=== PATIENT | male | born 1970 | race African-American/Black ===

== ENCOUNTER 2016-09-27 10:43 | Emergency (ER) | payer OTHER ==
--- NOTE | 2016-09-27 11:51 | RAD ---
FOUR VIEW LEFT ELBOW SERIES: Clinical history: Pain. FINDINGS: No fracture or dislocation. No joint capsular distention. IMPRESSION: No acute fracture of the left elbow. POS: [facility]
== END 2016-09-27 12:15 | disposition home or self-care (01) ==
LOC: NAV ERS 10:43
DX: M77.12 Lateral epicondylitis, left elbow (principal)

== ENCOUNTER 2017-03-18 17:11 | Emergency (ER) | payer OTHER ==
[~2017-03-18 17:11] MED LIST: Iopamidol 370 76% 100 ML VIAL ONE
[2017-03-18] MEDS ORDERED: Benzonatate 100 MG CAP ONE (18:00)
[2017-03-18] MEDS ORDERED: Ketorolac Tromethamine 60 MG/2 ML VIAL ONE (18:00)
[2017-03-18 18:39] LABS: #Basophils 0.1 thou/uL (0.0-0.2); #Eosinphils 0.2 thou/uL (0.0-0.7); #Lymphocytes 2.1 thou/uL (1.20-3.40); #Monocytes 0.8 thou/uL (0.11-0.59); #Neutrophils 3.3 thou/uL (1.40-6.50); %Basophils 2.1 % (0.0-1.0); %Eosinophils 3.2 % (0.0-10.0); %Lymphocytes 32.6 % (21.0-51.0); %Monocytes 11.7 % (0.0-10.0); %Neutrophils 50.5 % (42.0-75.0); Hemoglobin 15.3 g/dL (14.0-18.0); Mean Corpuscular HGB CONC 33.6 g/dL (32.0-36.0); Mean Corpuscular Hemoglobin 29.8 pg (27.0-31.0); Mean Corpuscular Volume 88.8 fl (80.0-94.0); Mean Platelet Volume 7.8 fL (7.4-10.4); Platelet Count 223 thou/uL (130-400); RBC Distribution Width 11.7 % (11.5-14.5); Red Blood Cell (RBC) Count 5.12 mill/uL (4.70-6.10); White Blood Cell (WBC) Count 6.6 thou/uL (4.8-10.8)
[2017-03-18 18:46] LABS: Anion Gap 14 mmol/L (10-20); BUN (Urea Nitrogen) 18 mg/dL (8.9-20.6); Calc. Creatinine Clearance 0 mL/min (70-130); Calcium 9.8 mg/dL (7.8-10.44); Carbon Dioxide 28 mmol/L (22-29); Chloride 105 mmol/L (98-107); Estimated GFR-MDRD 51; Glucose 75 mg/dL (70-105); Potassium 4.1 mmol/L (3.5-5.1); Sodium 143 mmol/L (136-145)
[2017-03-18 18:49] LABS: CKMB 1.8 ng/mL (0-6.6); Troponin I Less than 0.010 ng/mL (< 0.028)
[2017-03-18] MEDS ORDERED: Sodium Chloride 0.9% 1,000 ML ONE (18:53)
--- NOTE | 2017-03-18 19:21 | RAD ---
CHEST TWO VIEWS: History: Cough, fever. Comparison: None. FINDINGS: There is an asymmetric increased density of the left lateral hemithorax relative to the right. On the lateral radiograph there appears to be an ovoid density. This may affect the pleura. IMPRESSION: Possible pleural based mass left frontal hemithorax. Follow up CT of the chest recommended. POS: [facility]
--- NOTE | 2017-03-18 20:00 | CT ---
CT CHEST WITH CONTRAST: History: Abnormality seen on radiograph. Comparison: Radiograph same day. FINDINGS: The abnormality seen on the radiograph due to absent right pectoralis major muscle which gave the irr egular mass-like density over the left hemidiaphragm. Granulomas in the spleen. Upper abdomen is othe rwise unremarkable. No abnormal intrathoracic mass. Scattered pulmonary calcified granulomas. No adenopathy. Surgical clips in the right axilla. IMPRESSION: The abnormality on the radiograph is absent right pectoralis major muscle. There are surgical clips i n the right axilla. This could be post-surgical in nature or due to [place] syndrome. No mass. POS: [facility]
== END 2017-03-18 20:34 | disposition home or self-care (01) ==
LOC: NAV ERS 17:11
DX: J06.9 Acute upper respiratory infection, unspecified (principal); N28.9 Disorder of kidney and ureter, unspecified; F17.210 Nicotine dependence, cigarettes, uncomplicated
CPT/HCPCS: 71046; 71260; 80048; 82553; 84484; 85025; 93005; 96360; 96372; J1885; J7050

== ENCOUNTER 2017-03-20 14:27 | Emergency (ER) | payer OTHER ==
[2017-03-20] MEDS ORDERED: Acetaminophen/Codeine 30-300mg Tablet ONE (15:05)
== END 2017-03-20 15:42 | disposition home or self-care (01) ==
LOC: NAV ERS 14:27
DX: J11.1 Influenza due to unidentified influenza virus with other respiratory manifestations (principal); F17.210 Nicotine dependence, cigarettes, uncomplicated
CPT/HCPCS: 87081; 87430; 99283

== ENCOUNTER 2018-01-09 17:43 | Emergency (ER) | payer OTHER ==
[2018-01-09 18:04] LABS: Bilirubin Negative (Negative); Blood, Urine Trace (Negative); Glucose, Urine (Dipstick) Negative (Negative); Leukocyte Negative (Negative); Nitrite Negative (Negative); Protein, Urine (Dipstick) Negative (Neg-Trace); Specific Gravity, Urine 1.025 (1.005-1.030)
[2018-01-09 18:13] LABS: Clarity SL HAZY (Clear)
[2018-01-09 18:14] LABS: Crystals/HPF 1+ AMORPH URATES HPF (Negative); RBC/HPF 0-3 HPF (0-3); WBC/HPF 0-3 HPF (0-3)
[2018-01-09] MEDS ORDERED: Azithromycin 250 MG TAB ONE (18:41)
[2018-01-09] MEDS ORDERED: cefTRIAXone\\ROCEPHIN 500 MG VIAL ONE (18:41)
[2018-01-09] MEDS ORDERED: Ondansetron ODT 4 MG TAB ONE (18:41)
[2018-01-09] MEDS ORDERED: Lidocaine 1% (PF) 30 ML VIAL ONE (18:42)
[2018-01-10 19:44] LABS: Chlamydia by PCR Not Detected (NotDetected); GC by PCR Not Detected (NotDetected)
== END 2018-01-09 18:55 | disposition home or self-care (01) ==
LOC: NAV ERS 17:43
DX: Z20.2 Contact with and (suspected) exposure to infections with a predominantly sexual mode of transmission (principal); F17.210 Nicotine dependence, cigarettes, uncomplicated
CPT/HCPCS: 81003; 81015; 87491; 87591; J0696; J2001; Q0162

== ENCOUNTER 2018-02-14 19:43 | Emergency (ER) | payer OTHER ==
[2018-02-14] MEDS ORDERED: Benzonatate 100 MG CAP ONE (20:52)
[2018-02-14] MEDS ORDERED: Azithromycin 250 MG TAB ONE (20:52)
== END 2018-02-14 21:02 | disposition home or self-care (01) ==
LOC: NAV ERS 19:43
DX: J06.9 Acute upper respiratory infection, unspecified (principal); F17.210 Nicotine dependence, cigarettes, uncomplicated; F32.9 Major depressive disorder, single episode, unspecified
CPT/HCPCS: 87804; 99283

== ENCOUNTER 2018-06-04 05:10 | Emergency (ER) | payer OTHER ==
[2018-06-04] MEDS ORDERED: Ketorolac Tromethamine 30 MG/ML VIAL ONE (05:35)
== END 2018-06-04 05:50 | disposition home or self-care (01) ==
LOC: NAV ERS 05:10
DX: M54.5 Low back pain (principal); E78.5 Hyperlipidemia, unspecified; I10 Essential (primary) hypertension; F32.9 Major depressive disorder, single episode, unspecified; F17.210 Nicotine dependence, cigarettes, uncomplicated
CPT/HCPCS: 96374; J1885

== ENCOUNTER 2018-12-04 11:11 | Emergency (ER) | payer OTHER ==
--- NOTE | 2018-12-04 11:54 | RAD ---
Exam: Chest one view: HISTORY: Chest pain for 2 days COMPARISON: 03/18/2017 FINDINGS: Heart size is normal. The lungs appear clear. No confluent pneumonia, overt edema, or pleural effusio n. Multiple surgical clips in the right shoulder region. IMPRESSION: No acute intrathoracic disease.
[2018-12-04] MEDS ORDERED: Lorazepam 2 MG/ML VIAL ONE (12:17)
[2018-12-04] MEDS ORDERED: Aspirin Chewable 81 MG TAB ONE (12:18)
[2018-12-04 12:31] LABS: #Basophils 0.1 thou/uL (0.0-0.2); #Eosinphils 0.1 thou/uL (0.0-0.7); #Lymphocytes 1.9 thou/uL (1.20-3.40); #Monocytes 0.7 thou/uL (0.11-0.59); #Neutrophils 3.5 thou/uL (1.40-6.50); %Basophils 1.3 % (0.0-1.0); %Eosinophils 1.5 % (0.0-10.0); %Lymphocytes 30.2 % (21.0-51.0); %Monocytes 11.5 % (0.0-10.0); %Neutrophils 55.6 % (42.0-75.0); Hemoglobin 15.7 g/dL (14.0-18.0); Mean Corpuscular HGB CONC 33.2 g/dL (32.0-36.0); Mean Corpuscular Hemoglobin 29.3 pg (27.0-31.0); Mean Corpuscular Volume 88.2 fL (78.0-98.0); Mean Platelet Volume 6.8 fL (7.4-10.4); Platelet Count 266 thou/uL (130-400); RBC Distribution Width 12.1 % (11.5-14.5); Red Blood Cell (RBC) Count 5.37 mill/uL (4.70-6.10); White Blood Cell (WBC) Count 6.2 thou/uL (4.8-10.8)
[2018-12-04 12:47] LABS: ALT (SGPT) 26 U/L (8-55); AST (SGOT) 40 U/L (5-34); Albumin 4.6 g/dL (3.5-5.0); Alkaline Phosphatase 75 U/L (40-110); Anion Gap 17 mmol/L (10-20); BUN (Urea Nitrogen) 21 mg/dL (8.9-20.6); Bilirubin, Total 1.3 mg/dL (0.2-1.2); Calc. Creatinine Clearance 0 mL/min (70-130); Carbon Dioxide 22 mmol/L (22-29); Chloride 103 mmol/L (98-107); Estimated GFR-MDRD 66; Globulin 2.7 g/dL (2.4-3.5); Glucose 100 mg/dL (70-105); Protein, Total 7.3 g/dL (6.0-8.3); Sodium 138 mmol/L (136-145)
--- NOTE | 2018-12-04 13:24 | RAD ---
XR Forearm Lt 2 View STANDARD: 12/04/2018 12:02 PM CLINICAL INDICATION: Left forearm injury COMPARISON: None. FINDINGS: No acute fracture or dislocation. Overlying IV site is seen within left forearm soft tissues. IMPRESSION: 1. No acute osseous abnormality.
[2018-12-04] MEDS ORDERED: Nitroglycerin 2% Ointment 1 INCH/1 GM Packet ONE (13:28)
[2018-12-04] MEDS ORDERED: Nitroglycerin 0.4 MG TAB (25 Tab Bottle) ONE (13:28)
== END 2018-12-04 14:16 | disposition short-term general hospital (02) ==
LOC: NAV ERS 11:11
DX: S50.12XA Contusion of left forearm, initial encounter (principal); I20.9 Angina pectoris, unspecified; R94.31 Abnormal electrocardiogram [ECG] [EKG]; F19.10 Other psychoactive substance abuse, uncomplicated; I10 Essential (primary) hypertension; E78.5 Hyperlipidemia, unspecified; E78.00 Pure hypercholesterolemia, unspecified; F32.9 Major depressive disorder, single episode, unspecified; F17.210 Nicotine dependence, cigarettes, uncomplicated; Y04.0XXA Assault by unarmed brawl or fight, initial encounter
CPT/HCPCS: 71045; 80053; 83880; 84484; 85025; 93005; 94760; 96374; J2060

== ENCOUNTER 2019-01-28 12:14 | Emergency (ER) | payer OTHER ==
--- NOTE | 2019-01-28 13:08 | RAD ---
XR Forearm Lt 2 View STANDARD: 01/28/2019 12:42 PM CLINICAL INDICATION: Laceration COMPARISON: 12/04/2018 FINDINGS: No acute fracture. No radiopaque foreign body.Mild focal soft tissue prominence is seen at the radial aspect of the distal forearm. Correlate with physical exam. IMPRESSION: No acute osseous abnormality.
[2019-01-28] MEDS ORDERED: Adacel (T-DAP) 0.5 ML SYRINGE ONE ×2 (13:17→13:27)
[2019-01-28] MEDS ORDERED: Triple Antibiotic Oint 1 GM Packet ONE (13:17)
== END 2019-01-28 13:37 | disposition home or self-care (01) ==
LOC: NAV ERS 12:14
DX: S50.12XA Contusion of left forearm, initial encounter (principal); E78.00 Pure hypercholesterolemia, unspecified; E78.5 Hyperlipidemia, unspecified; F32.9 Major depressive disorder, single episode, unspecified; F17.210 Nicotine dependence, cigarettes, uncomplicated; Z79.899 Other long term (current) drug therapy; W22.8XXA Striking against or struck by other objects, initial encounter
CPT/HCPCS: 90715; 99283

== ENCOUNTER 2019-04-16 12:17 | Emergency (ER) | payer OTHER ==
[2019-04-16] MEDS ORDERED: Ketorolac Tromethamine 60 MG/2 ML VIAL ONE (13:28)
== END 2019-04-16 13:49 | disposition home or self-care (01) ==
LOC: NAV ERS 12:17
DX: S61.211A Laceration without foreign body of left index finger without damage to nail, initial encounter (principal); I10 Essential (primary) hypertension; E78.5 Hyperlipidemia, unspecified; E78.00 Pure hypercholesterolemia, unspecified; F32.9 Major depressive disorder, single episode, unspecified; F17.210 Nicotine dependence, cigarettes, uncomplicated; Z79.899 Other long term (current) drug therapy; W26.8XXA Contact with other sharp object(s), not elsewhere classified, initial encounter
CPT/HCPCS: 96372; 99282; J1885

== ENCOUNTER 2019-05-31 19:36 | Emergency (ER) | payer OTHER | END 2019-05-31 20:57 | disposition home or self-care (01) | LOC: NAV ERS 19:36 | DX: J02.9 Acute pharyngitis, unspecified (principal); R05 Cough; R19.7 Diarrhea, unspecified; E78.5 Hyperlipidemia, unspecified; E78.00 Pure hypercholesterolemia, unspecified; I10 Essential (primary) hypertension; F17.210 Nicotine dependence, cigarettes, uncomplicated; F32.9 Major depressive disorder, single episode, unspecified | CPT/HCPCS: 87081; 87430; 87804; 99284 ==

== ENCOUNTER 2020-01-08 14:40 | Emergency (ER) | payer OTHER ==
[2020-01-08 15:25] LABS: #Basophils 0.1 thou/uL (0.0-0.2); #Eosinphils 0.2 thou/uL (0.0-0.7); #Lymphocytes 2.6 thou/uL (1.20-3.40); #Monocytes 0.4 thou/uL (0.11-0.59); #Neutrophils 2.7 thou/uL (1.40-6.50); %Basophils 1.6 % (0.0-1.0); %Eosinophils 2.7 % (0.0-10.0); %Lymphocytes 43.5 % (21.0-51.0); %Monocytes 7.2 % (0.0-10.0); Hemoglobin 16.9 g/dL (14.0-18.0); Mean Corpuscular HGB CONC 32.8 g/dL (32.0-36.0); Mean Corpuscular Hemoglobin 30.1 pg (27.0-31.0); Mean Corpuscular Volume 91.7 fL (78.0-98.0); Mean Platelet Volume 6.6 fL (7.4-10.4); Platelet Count 249 thou/uL (130-400); RBC Distribution Width 12.5 % (11.5-14.5); White Blood Cell (WBC) Count 5.9 thou/uL (4.8-10.8)
--- NOTE | 2020-01-08 15:41 | CT ---
Cervical spine CT: 01/08/2020 HISTORY: Pain, injury TECHNIQUE: Axial CT imaging at 2.5 mm intervals from the skull base through the lung apices with azeem nal and sagittal reformatted imaging FINDINGS: The visualized lung apices appear unremarkable. The craniocervical junction, the atlantoaxial interspace, the cervicothoracic junction, the dens, the occipital condyles, and the C1-2 articulation appear within normal limits. C1 ring appears intact. No acute fracture or evidence of dislocation is seen within the cervical spine. [employer] imaging demonst rates amputation of the right upper extremity at the level of the proximal right humeral shaft. There is disc space narrowing with degenerative endplate change as well as anterior and posterior ost eophyte, most prominent at C4-5, C5-6, and C6-7 levels. Bilateral uncovertebral osteophyte formation noted at C5-6 and C6-7. IMPRESSION: Cervical spine degenerative change. No acute fracture or dislocation seen.
[2020-01-08 15:48] LABS: ALT (SGPT) 28 U/L (8-55); AST (SGOT) 23 U/L (5-34); Albumin 4.1 g/dL (3.5-5.0); Alkaline Phosphatase 82 U/L (40-110); Anion Gap 15 mmol/L (10-20); BUN (Urea Nitrogen) 14 mg/dL (8.9-20.6); Bilirubin, Total 0.5 mg/dL (0.2-1.2); CK (CPK) 301 U/L (30-200); Calc. Creatinine Clearance 0 mL/min (70-130); Calcium 8.9 mg/dL (7.8-10.44); Carbon Dioxide 21 mmol/L (22-29); Chloride 107 mmol/L (98-107); Estimated GFR-MDRD Greater than 90; Glucose 115 mg/dL (70-105); Lipase 21 U/L (8-78); Potassium 3.7 mmol/L (3.5-5.1); Protein, Total 7.1 g/dL (6.0-8.3); Sodium 139 mmol/L (136-145)
--- NOTE | 2020-01-08 15:49 | CT ---
CT cervical spine noncontrast HISTORY: Low back pain. FINDINGS: Vertebral body heights and alignment are maintained. No acute fracture or dislocation. No traumatic disc herniation is evident. An oval well-circumscribed lucency within the right iliac cr est is 0.8 cm greatest diameter. A 0.3 cm irregular shaped lucency is noted within the left side of the sacrum. No aggressive osseous destruction is evident. At the inferior pole of the partially visualized left kidney is a lobular calcification measuring up to 0.4 cm. No hydronephrosis evident. IMPRESSION : No acute injury is demonstrated. Nonobstructing 4 mm left renal calculus may be a cause of back pain.
[2020-01-08] MEDS ORDERED: Sodium Chloride 0.9% 1,000 ML ONE (16:09)
--- NOTE | 2020-01-08 16:39 | RAD ---
LEFT KNEE 4 VIEWS: Date: 01/08/2020 HISTORY: Knee pain. FINDINGS: There are mild degenerative changes. Mild spurring from the tibial spines and very mild marginal oste ophytes. Minimal spurring from the patella. No joint effusion. No fracture. IMPRESSION: Mild degenerative change. POS: [facility]
--- NOTE | 2020-01-08 16:39 | RAD ---
AP CHEST: Date: 01/08/2020 HISTORY: Chest pain. COMPARISON: 12/04/2018. FINDINGS: The lungs appear clear. Heart and mediastinum appear normal. Vasculature normal. Multiple surgical clips in the right axilla again noted. IMPRESSION: No acute process. POS: [facility]
[2020-01-08 16:48] LABS: Troponin I Less than 0.010 ng/mL (< 0.028)
[2020-01-08] MEDS ORDERED: Ibuprofen 200 MG TAB ONE (17:23)
== END 2020-01-08 18:15 ==
LOC: NAV ERS 14:40
DX: S16.1XXA Strain of muscle, fascia and tendon at neck level, initial encounter (principal); S39.012A Strain of muscle, fascia and tendon of lower back, initial encounter; S20.219A Contusion of unspecified front wall of thorax, initial encounter; N20.0 Calculus of kidney; R74.8 Abnormal levels of other serum enzymes; I10 Essential (primary) hypertension; E78.5 Hyperlipidemia, unspecified; E78.00 Pure hypercholesterolemia, unspecified; F32.9 Major depressive disorder, single episode, unspecified; F17.210 Nicotine dependence, cigarettes, uncomplicated; X58.XXXA Exposure to other specified factors, initial encounter
CPT/HCPCS: 71045; 72125; 72131; 80053; 82550; 83690; 84484; 85025; 93005; J7050

== ENCOUNTER 2020-06-13 21:09 | Emergency (ER) | payer OTHER ==
[2020-06-14 13:41] LABS: SARS-CoV-2 PCR by NAA Not Detected (NotDetected)
== END 2020-06-13 21:55 | disposition home or self-care (01) ==
LOC: NAV ERS 21:09
DX: J18.9 Pneumonia, unspecified organism (principal); Z20.822 Contact with and (suspected) exposure to COVID-19; E78.5 Hyperlipidemia, unspecified; I10 Essential (primary) hypertension; F17.210 Nicotine dependence, cigarettes, uncomplicated
CPT/HCPCS: 71045; 87635; U0003; U0005

== ENCOUNTER 2020-07-27 10:22 | Emergency (ER) | payer OTHER | END 2020-07-27 11:55 | disposition home or self-care (01) | LOC: NAV ERS 10:22 | DX: S61.231A Puncture wound without foreign body of left index finger without damage to nail, initial encounter (principal); E78.5 Hyperlipidemia, unspecified; E78.00 Pure hypercholesterolemia, unspecified; I10 Essential (primary) hypertension; F17.210 Nicotine dependence, cigarettes, uncomplicated; W25.XXXA Contact with sharp glass, initial encounter ==

== ENCOUNTER 2020-08-17 07:03 | Emergency (ER) | payer OTHER ==
[2020-08-17] MEDS ORDERED: Fluorescein Opthalmic Strip ONE (07:15)
[2020-08-17] MEDS ORDERED: Proparacaine 0.5% Opth 15 ML BOT ONE (07:15)
[2020-08-17] MEDS ORDERED: Sodium Chloride 0.9% 250 ML 250 ML ONE (07:24)
== END 2020-08-17 07:43 | disposition home or self-care (01) ==
LOC: NAV ERS 07:03
DX: T26.92XA Corrosion of left eye and adnexa, part unspecified, initial encounter (principal); I10 Essential (primary) hypertension; E78.5 Hyperlipidemia, unspecified; E78.00 Pure hypercholesterolemia, unspecified; F17.210 Nicotine dependence, cigarettes, uncomplicated; Z79.899 Other long term (current) drug therapy
CPT/HCPCS: 99283; J7050

== ENCOUNTER 2021-07-26 19:52 | Emergency (ER) | payer OTHER ==
[2021-07-26] MEDS ORDERED: Ketorolac Tromethamine 30 MG/ML VIAL ONE (21:09)
[2021-07-26 21:44] LABS: ALT (SGPT) 20 U/L (8-55); AST (SGOT) 18 U/L (5-34); Albumin 3.8 g/dL (3.5-5.0); Alkaline Phosphatase 85 U/L (40-110); Anion Gap 15 mmol/L (10-20); BUN (Urea Nitrogen) 13 mg/dL (8.4-25.7); Bilirubin, Total 0.6 mg/dL (0.2-1.2); Calc. Creatinine Clearance 0 mL/min (70-130); Calcium 9.4 mg/dL (7.8-10.44); Carbon Dioxide 26 mmol/L (22-29); Chloride 107 mmol/L (98-107); Glucose 109 mg/dL (70-105); Protein, Total 6.8 g/dL (6.0-8.3); Sodium 144 mmol/L (136-145)
[2021-07-26 21:59] LABS: Bilirubin Negative (Negative); Blood, Urine Trace (Negative); Clarity Slightly Cloudy (Clear); Glucose, Urine (Dipstick) Negative (Negative); Ketone, Urine Negative (Negative); Leukocyte Negative (Negative); Nitrite Negative (Negative); Protein, Urine (Dipstick) Negative (Neg-Trace); RBC/HPF 0-3 HPF (0-3); Urobilinogen 0.2 mg/dL (Less than 2); WBC/HPF 0-3 HPF (0-3)
[2021-07-26 22:00] LABS: Bacteria/HPF None Seen HPF (None Seen); Squamous Epithelial None Seen HPF (0-3)
[2021-07-26 22:04] LABS: #Basophils 0.2 thou/uL (0.0-0.2); #Eosinphils 0.2 thou/uL (0.0-0.7); #Lymphocytes 2.5 thou/uL (1.20-3.40); #Neutrophils 5.7 thou/uL (1.40-6.50); %Basophils 1.6 % (0.0-1.0); %Eosinophils 1.9 % (0.0-10.0); %Lymphocytes 26.1 % (21.0-51.0); %Monocytes 10.7 % (0.0-10.0); %Neutrophils 59.8 % (42.0-75.0); Hemoglobin 15.4 g/dL (14.0-18.0); Mean Corpuscular HGB CONC 31.5 g/dL (32.0-36.0); Mean Corpuscular Hemoglobin 29.5 pg (27.0-31.0); Mean Corpuscular Volume 93.5 fL (78.0-98.0); Mean Platelet Volume 6.7 fL (7.4-10.4); Platelet Count 228 thou/uL (130-400); RBC Distribution Width 12.4 % (11.5-14.5); Red Blood Cell (RBC) Count 5.23 mill/uL (4.70-6.10); White Blood Cell (WBC) Count 9.5 thou/uL (4.8-10.8)
[2021-07-27] MEDS ORDERED: Cipro 250 MG TAB ONE (01:56)
[2021-07-27] MEDS ORDERED: metroNIDAZOLE 500 MG TAB ONE (01:56)
== END 2021-07-27 02:15 | disposition home or self-care (01) ==
LOC: NAV ERS 19:52
DX: K57.32 Diverticulitis of large intestine without perforation or abscess without bleeding (principal); N20.0 Calculus of kidney; K83.8 Other specified diseases of biliary tract; I10 Essential (primary) hypertension; E78.5 Hyperlipidemia, unspecified; E78.00 Pure hypercholesterolemia, unspecified; F17.210 Nicotine dependence, cigarettes, uncomplicated
CPT/HCPCS: 74177; 80053; 81003; 81015; 83605; 85025; 96374; J1885; Q9967

== ENCOUNTER 2023-04-26 02:29 | Emergency (ER) | payer OTHER ==
[2023-04-26] MEDS ORDERED: Tetracaine 0.5% PF 4 ML BOT ONE (02:34)
[2023-04-26] MEDS ORDERED: Fluorescein Opthalmic Strip ONE (02:34)
== END 2023-04-26 03:08 | disposition home or self-care (01) ==
LOC: NAV ERS 02:29
DX: S05.01XA Injury of conjunctiva and corneal abrasion without foreign body, right eye, initial encounter (principal); I10 Essential (primary) hypertension; F17.210 Nicotine dependence, cigarettes, uncomplicated; W45.8XXA Other foreign body or object entering through skin, initial encounter; Y99.0 Civilian activity done for income or pay
CPT/HCPCS: 99283

== ENCOUNTER 2024-02-28 17:04 | Emergency (ER) | payer OTHER ==
[2024-02-28] MEDS ORDERED: Acetaminophen 325 MG TAB ONE (18:26)
== END 2024-02-28 19:12 | disposition home or self-care (01) ==
LOC: NAV ERS 17:04
DX: M54.50 Low back pain, unspecified (principal); J06.9 Acute upper respiratory infection, unspecified; I10 Essential (primary) hypertension; E78.5 Hyperlipidemia, unspecified
CPT/HCPCS: 71046; 87428

== ENCOUNTER 2024-11-18 16:46 | Emergency (ER) | payer OTHER | END 2024-11-18 18:10 | disposition home or self-care (01) | LOC: NAV ERS 16:46 | DX: R05.9 Cough, unspecified (principal); R09.81 Nasal congestion; I10 Essential (primary) hypertension | CPT/HCPCS: 71046; 87400; 87426 ==